=== PATIENT | female | born 1985 | race American Indian/Alaskan Native ===

== ENCOUNTER 2022-01-31 15:50 | Emergency (ER) | payer MEDICARE ==
[2022-01-31] MEDS ORDERED: ACETAMINOPHEN 500 MG TAB PO ONE (23:43)
[2022-01-31] MEDS ORDERED: IBUPROFEN 600 MG TAB PO ONE (23:43)
--- NOTE | 2022-02-01 01:13 | Emergency Department Report ---
ED General Adult HPI - General Chief complaint: Skin/Abscess/Foreign Body Stated complaint: LUMP UNDER BREAST Source: patient Mode of arrival: Ambulatory Limitations: No Limitations - History of Present Illness Initial comments: Patient is a 36-year-old -[place] female with a history of bipolar disorder and paranoid schizophrenia who presents to the ED with complaint of acute onset persistent bilateral axilla swollen painful lymph nodes, left lower eyelid stye and mild erythematous rash on right shoulder after being bitten by unknown insect about a week ago. Patient states that the pain has been constant and persistent especially in the last 2 days. Patient denies dizziness, syncope, fever, chills, nausea and vomiting, headache, chest pain or shortness of breath. MD Complaint: bilateral axilla lymphadenopathy; left lower eyelid sty -: Gradual, week(s) (1) Location: upper extremity (Bilateral axilla lymphadenopathy) Radiation: non-radiation Severity scale (0 -10): 7 Quality: aching, sharp Consistency: constant Improves with: none Worsens with: none Associated Symptoms: denies other symptoms. denies: confusion, cough, diaphoresis, fever/chills, headaches, loss of appetite, nausea/vomiting, rash, shortness of breath, syncope, weakness Treatments Prior to Arrival: none - Related Data Previous Rx's Medication Instructions Recorded Last Taken Type Clindamycin [Clindamycin CAP] 300 mg PO Q8H #30 cap 02/01/22 Unknown Rx Ibuprofen [Motrin] 800 mg PO Q8HR PRN #30 tablet 02/01/22 Unknown Rx Allergies Allergy/AdvReac Type Severity Reaction Status Date / Time amoxicillin Allergy Unknown Verified 01/31/22 18:44 cetirizine [From Zyrtec] Allergy Unknown Verified 01/31/22 18:44 ED Review of Systems ROS: Stated complaint: LUMP UNDER BREAST Other details as noted in HPI Constitutional: denies: chills, fever Eyes: denies: eye pain, eye discharge, vision change ENT: denies: ear pain, throat pain Respiratory: denies: cough, shortness of breath, wheezing Cardiovascular: denies: chest pain, palpitations Endocrine: no symptoms reported Gastrointestinal: denies: abdominal pain, nausea, vomiting, diarrhea Genitourinary: denies: urgency, dysuria, discharge Musculoskeletal: denies: back pain, joint swelling, arthralgia Skin: rash (Mild erythematous rash on right shoulder), change in color. denies: lesions, change in hair/nails, pruritus Neurological: denies: headache, weakness, paresthesias Psychiatric: denies: anxiety, depression Hematological/Lymphatic: denies: easy bleeding, easy bruising ED Past Medical Hx - Past Medical History Previous Medical History?: No Hx Psychiatric Treatment: Yes (Anxiety, bipolar, paranoid schizophrenia) - Surgical History Past Surgical History?: No - Medications Home Medications: Home Medications Medication Instructions Recorded Confirmed Last Taken Type Clindamycin [Clindamycin CAP] 300 mg PO Q8H #30 cap 02/01/22 Unknown Rx Ibuprofen [Motrin] 800 mg PO Q8HR PRN #30 tablet 02/01/22 Unknown Rx ED Physical Exam - General Limitations: No Limitations General appearance: alert, in no apparent distress - Head Head exam: Present: atraumatic, normocephalic, normal inspection - Eye Eye exam: Present: normal appearance, PERRL, EOMI Pupils: Present: normal accommodation - ENT ENT exam: Present: normal exam, normal orophraynx, mucous membranes moist, TM's normal bilaterally, normal external ear exam - Neck Neck exam: Present: normal inspection, full ROM, lymphadenopathy (Palpable tender bilateral axillary lymphadenopathy). Absent: tenderness - Respiratory Respiratory exam: Present: normal lung sounds bilaterally. Absent: respiratory distress, wheezes, rales, stridor, chest wall tenderness, accessory muscle use - Cardiovascular Cardiovascular Exam: Present: regular rate, normal rhythm, normal heart sounds. Absent: systolic murmur, diastolic murmur, rubs, gallop - GI/Abdominal GI/Abdominal exam: Present: soft, normal bowel sounds. Absent: tenderness, guarding, rebound, hyperactive bowel sounds, organomegaly, mass - Extremities Exam Extremities exam: Present: normal inspection, full ROM, normal capillary refill - Back Exam Back exam: Present: normal inspection, full ROM. Absent: tenderness, CVA tenderness (R), CVA tenderness (L), muscle spasm, paraspinal tenderness, vertebral tenderness - Neurological Exam Neurological exam: Present: alert, oriented X3, CN II-XII intact, normal gait, reflexes normal - Psychiatric Psychiatric exam: Present: normal affect, normal mood - Skin Skin exam: Present: warm, dry, intact, normal color, rash (Mild erythematous rash on right shoulder), erythema ED Course Vital Signs 05/23/22 18:41 Temperature 98.8 F Pulse Rate 95 H Respiratory 16 Rate O2 Sat by Pulse 99 Oximetry ED Medical Decision Making - Medical Decision Making This is a 36-year-old -[place] female with a history of bipolar disorder and paranoid schizophrenia who presents to the ED with complaint of acute onset persistent bilateral axilla swollen painful lymph nodes, left lower eyelid stye and mild erythematous rash on right shoulder after being bitten by unknown insect about a week ago. In the ED, patient is alert and oriented x3 and is not in any distress. Patient was treated for pain in the ED and discharged home on pain medications and antibiotics and advised to follow-up with her primary care physician in 7 to 10 days for reevaluation or return to the ED immediately if symptoms get worse. - Differential Diagnosis Cellulitis; insect bite; lymphadenopathy; folliculitis Critical care attestation.: If time is entered above; I have spent that time in minutes in the direct care of this critically ill patient, excluding procedure time. ED Disposition Clinical Impression: Acute folliculitis, Cellulitis of right shoulder, Axillary lymphadenopathy, Hordeolum internum left lower eyelid Disposition: HOME / SELF CARE / HOMELESS Is pt being admited?: No Does the pt Need Aspirin: No Condition: Stable Instructions: Cellulitis, Adult, [id number], Lymphadenopathy, Folliculitis Additional Instructions: Take medication with food, drink plenty of fluids and follow-up with your primary care physician in 7 to 10 days for reevaluation. Return to the ED immediately if symptoms get worse Prescriptions: Clindamycin [Clindamycin CAP] 300 mg PO Q8H #30 cap Ibuprofen [Motrin] 800 mg PO Q8HR PRN #30 tablet PRN Reason: Pain , Severe (7-10) Referrals: [facility] [Provider Group] - 7-10 days Time of Disposition: 01:14 Print Language: BERMUDIAN
[2022-02-01 01:47] VITALS: BP 142/87
== END 2022-02-01 01:47 | disposition home or self-care (01) ==
LOC: ED 15:50
DX: L73.9 Follicular disorder, unspecified (principal); L03.113 Cellulitis of right upper limb; R59.1 Generalized enlarged lymph nodes; H00.025 Hordeolum internum left lower eyelid; F41.9 Anxiety disorder, unspecified; F31.9 Bipolar disorder, unspecified; F20.9 Schizophrenia, unspecified; Z88.1 Allergy status to other antibiotic agents; Z88.8 Allergy status to other drugs, medicaments and biological substances; Z79.899 Other long term (current) drug therapy
CPT/HCPCS: 99282

== ENCOUNTER 2022-06-08 08:13 | Emergency (ER) | payer MEDICARE, MEDICAID ==
[2022-06-08 08:19] VITALS: BP 114/76
--- NOTE | 2022-06-08 10:42 | Emergency Department Report ---
Minor Respiratory - HPI Chief Complaint: Upper Respiratory Infection Stated Complaint: SORE THROAT/CONGESTION Time Seen by Provider: 06/08/22 10:37 Duration: 2 Days Pain Location: Facial, Chest Minor Respiratory: Yes Rhinorrhea, Yes Sore Throat, Yes Able to Tolerate Fluids, Yes Cough, No Ear Pain, No Sick Contacts, No Hemoptysis, No Chest Pain, No Shortness of Breath, No Fever Other History: Patient is a 36-year-old female that comes to the ER with sore throat, cough, headache, chills. She denies fever. She had a negative COVID test yesterday. She has not seen her primary care. ED Review of Systems ROS: Stated complaint: SORE THROAT/CONGESTION Other details as noted in HPI Comment: All other systems reviewed and negative ED Past Medical Hx - Past Medical History Previous Medical History?: Yes Hx Psychiatric Treatment: Yes (bipolar) - Surgical History Past Surgical History?: No - Family History Family history: no significant - Social History Smoking Status: Current Every Day Smoker Substance Use Type: None - Medications Home Medications: Home Medications Medication Instructions Recorded Confirmed Last Taken Type risperiDONE [RisperDAL] 5 mg PO BID 01/28/20 Unknown History Clindamycin [Clindamycin CAP] 300 mg PO Q8H #30 cap 06/08/22 Unknown Rx Fluticasone [Flonase] 1 spray NS QDAY #1 bottle 06/08/22 Unknown Rx predniSONE [Deltasone] 20 mg PO DAILY #5 tablet 06/08/22 Unknown Rx Minor Respiratory Exam - Exam General: Vital signs noted. No distress. Alert and acting appropriately. HEENT: Yes Pharyngeal Erythema, Yes Pharyngeal Exudates, Yes Moist Mucous Membranes, No Rhinorrhea, No Conjuctival Injection, No Frontal Tenderness, No Maxillary Tenderness Ear: Neither TM Bulge, Neither TM Erythema, Neither EAC Pain, Neither EAC Discharge Neck: Yes Supple, No Adenopathy Lungs: Yes Good Air Exchange, Yes Cough, No Wheezes, No Ronchi, No Stridor, No Labored Respirations, No Retractions, No Use of Accessory Muscles, No Other Abnormal Lung Sounds Heart: Yes Regular, No Murmur Abdomen: Yes Normal Bowel Sounds, No Tenderness, No Peritoneal Signs Skin: No Rash, No Edema Neurologic: Alert and oriented, no deficits. Musculoskeletal: Unremarkable. ED Course Vital Signs 06/08/22 06/08/22 08:17 10:33 Temperature 97.4 F L Pulse Rate 93 H Respiratory 12 15 Rate Blood Pressure 114/76 [Right] O2 Sat by Pulse 96 97 Oximetry ED Medical Decision Making - Medical Decision Making Vital Signs 06/08/22 06/08/22 08:17 10:33 Temperature 97.4 F L Pulse Rate 93 H Respiratory 12 15 Rate Blood Pressure 114/76 [Right] O2 Sat by Pulse 96 97 Oximetry Vital signs normal. In no acute distress. Ambulatory to fast track. Uvulitis noted on exam. She does have exudates bilateral. She is taking p.o. Patient cannot take cephalosporins or amoxicillin. She states she is allergic. Patient being discharged home with discharge plan of care including diet, activity, medications and follow-up. She verbalizes understanding of plan of care. - Differential Diagnosis URI Critical care attestation.: If time is entered above; I have spent that time in minutes in the direct care of this critically ill patient, excluding procedure time. ED Disposition Clinical Impression: URI (upper respiratory infection), Uvulitis Disposition: 01 HOME / SELF CARE / HOMELESS Is pt being admited?: No Does the pt Need Aspirin: No Condition: Stable Instructions: Uvulitis Additional Instructions: Medications as ordered today until gone Motrin or Tylenol for pain Follow-up with PCP next week to make sure you are feeling better Diet and activity as tolerated Stay well-hydrated with water [id number] Robitussin for cough Referrals: TRICIA HUFF MD [Primary Care Provider] - 3-5 Days Forms: Work/School Release Form(ED) Time of Disposition: 10:39
== END 2022-06-08 11:27 | disposition home or self-care (01) ==
LOC: ED 08:13
DX: J06.9 Acute upper respiratory infection, unspecified (principal); K12.2 Cellulitis and abscess of mouth; F31.9 Bipolar disorder, unspecified; F17.200 Nicotine dependence, unspecified, uncomplicated
CPT/HCPCS: 99282